=== PATIENT | male | born 1960 | race Caucasian/White ===

== ENCOUNTER → 2021-01-22 | Outpatient (CLI) | payer OTHER | LOC: EDSEX 13:18 → RT 13:18 | PROVIDERS: ATTEND Family Medicine | DX: Z02.71 Encounter for disability determination (principal); J44.9 Chronic obstructive pulmonary disease, unspecified ==

== ENCOUNTER 2021-08-13 09:58 | Outpatient (RCR) | payer SELFPAY ==
[2021-08-08 16:28] LABS: BASOPHILS # (AUTO) 0.1 10^3/uL (0.0-0.1); BASOPHILS % (AUTO) 1 % (0-10); EOSINOPHILS # (AUTO) 0.4 10^3/uL (0.0-0.3); EOSINOPHILS % (AUTO) 5 % (0-10); HEMATOCRIT 41 % (40-54); HEMOGLOBIN 13.7 g/dL (13.3-17.7); LYMPHOCYTES # (AUTO) 1.8 10^3/uL (1.0-4.0); LYMPHOCYTES % (AUTO) 20 % (12-44); MEAN CORPUSCULAR HEMOGLOBIN 29 pg (25-34); MEAN CORPUSCULAR HGB CONC 33 g/dL (32-36); MEAN CORPUSCULAR VOLUME 88 fL (80-99); MEAN PLATELET VOLUME 8.6 fL (9.0-12.2); MONOCYTES # (AUTO) 1.1 10^3/uL (0.0-1.0); MONOCYTES % (AUTO) 12 % (0-12); NEUTROPHILS # (AUTO) 5.4 10^3/uL (1.8-7.8); NEUTROPHILS % (AUTO) 61 % (42-75); PLATELET COUNT 246 10^3/uL (130-400); WHITE BLOOD COUNT 8.8 10^3/uL (4.3-11.0)
[2021-08-08 16:48] LABS: ALBUMIN 3.9 GM/DL (3.2-4.5)
[2021-08-08 16:49] LABS: POTASSIUM 4.3 MMOL/L (3.6-5.0)
[2021-08-08 16:50] LABS: CALCIUM 9.2 MG/DL (8.5-10.1)
[2021-08-08 16:51] LABS: TOTAL PROTEIN 7.2 GM/DL (6.4-8.2)
[2021-08-08 16:53] LABS: BILIRUBIN,TOTAL 0.2 MG/DL (0.1-1.0)
--- NOTE | 2021-08-08 17:36 | Diagnostic Imaging Report ---
INDICATION: Altered atherosclerotic disease. EXAMINATION: 2 view chest 08/08/2021 FINDINGS: There is elevation of the left hemidiaphragm. The lungs appear clear. No infiltrates, effusions or pneumothorax. The heart and pulmonary vasculature appear normal. Postoperative changes incidentally noted in the visualized cervical spine. There is a compression fracture in the lower thoracic region, age indeterminant. IMPRESSION: 1. No acute cardiopulmonary process with other findings as above. Dictated by: Dictated on workstation # [id number]
[2021-08-13 10:08] LABS: BILIRUBIN,URINE NEGATIVE (NEGATIVE); CLARITY,URINE CLEAR; COLOR,URINE YELLOW; GLUCOSE, URINE (UA) NEGATIVE (NEGATIVE); KETONES,URINE NEGATIVE (NEGATIVE); LEUKOCYTE ESTERASE ,URINE NEGATIVE (NEGATIVE); NITRITE,URINE NEGATIVE (NEGATIVE); PROTEIN,URINE NEGATIVE (NEGATIVE)
[2021-08-13 10:19] LABS: BACTERIA,URINE NEGATIVE /HPF; HYALINE CASTS, URINE RARE /LPF
== END 2021-09-06 | disposition home or self-care (01) ==
LOC: RT 09:58
PROVIDERS: ATTEND Thoracic Surgery (Cardiothoracic Vascular Surgery)
DX: Z01.810 Encounter for preprocedural cardiovascular examination (principal); I70.213 Atherosclerosis of native arteries of extremities with intermittent claudication, bilateral legs
CPT/HCPCS: 36415; 71046; 80053; 81000; 85025; 93005

== ENCOUNTER → 2021-08-13 | Outpatient (CLI) | payer SELFPAY | LOC: LABNPT 09:00 | PROVIDERS: ATTEND Thoracic Surgery (Cardiothoracic Vascular Surgery) | DX: Z01.812 Encounter for preprocedural laboratory examination (principal); I70.213 Atherosclerosis of native arteries of extremities with intermittent claudication, bilateral legs; Z20.822 Contact with and (suspected) exposure to COVID-19 | CPT/HCPCS: 87636 ==